=== PATIENT | male | born 1950 | race African-American/Black ===

== ENCOUNTER 2017-09-16 11:45 | Emergency (ER) | payer MEDICARE, MEDICAID ==
[~2017-09-16] VITALS: Ht 188 cm; Wt 90.2 kg
[2017-09-16 12:24] LABS: INFLUENZA A NONE DETECTED (NONE DETECT); INFLUENZA B NONE DETECTED (NONE DETECT)
[2017-09-16] MEDS ORDERED: ZITHROMAX250 MG PO (12:52)
[2017-09-16] MEDS ORDERED: MEDDOSEPAK PO (12:52)
[2017-09-16] MEDS ORDERED: PROVENTIL HFA IN (12:52)
[2017-09-16 12:54] VITALS: BP 149/74
== END 2017-09-16 12:54 | disposition home or self-care (01) ==
LOC: ED 11:45
PROVIDERS: Emergency Medicine
DX: J06.9 Acute upper respiratory infection, unspecified (principal); I10 Essential (primary) hypertension; E78.00 Pure hypercholesterolemia, unspecified